=== PATIENT | male | born 1980 | race Two or more races ===

== ENCOUNTER → 2025-06-24 | Outpatient (CLI) | payer MEDICAID, SELFPAY ==
--- NOTE | 2025-06-24 10:15 | XR_ITS ---
Examination: Ultrasound abdominal aorta TECHNIQUE: Grayscale sonographic images abdominal aorta Date and time: June 24, 2020 5:10 AM INDICATIONS: Pulsatile abdominal mass on physical examination 2 months ago, history vaping one year FINDINGS: Transverse dimension proximal aorta 1.9 cm mid aorta 1.7 cm distal aorta 1.3 cm right iliac 1.1 cm left iliac 0.9 cm IMPRESSION: Negative for abdominal aortic aneurysm:
== END | disposition home or self-care (01) ==
PROVIDERS: PCP Nurse Practitioner Family; Referring Provider Nurse Practitioner Family; Visit Provider Nurse Practitioner Family
DX: R19.00 Intra-abdominal and pelvic swelling, mass and lump, unspecified site (principal)
CPT/HCPCS: 76706